=== PATIENT | female | born 1990 | race African-American/Black ===

== ENCOUNTER 2024-02-03 18:02 | Emergency (ER) | payer MEDICAID ==
[~2024-02-03] VITALS: Ht 170.2 cm; Wt 91.0 kg
[2024-02-03 18:07] VITALS: TEMP 98.2; O2SAT 100
[2024-02-03] MEDS: LIDOCAINE HCL 1% 20ML VIAL (Pyxis) INJ INFIL ONE (18:48)
[2024-02-03] MEDS: TETANUS, DIPHTHERIA, PERTUSSIS VAC/PF 0.5ML (>10YR OLD) IM ONE (19:15)
[2024-02-03 19:30] VITALS: BP 172/99; PULSE 87; RESP 18
[2024-02-03] MEDS: KETOROLAC 60MG/2ML VIAL IM ONE (19:30)
[2024-02-03] MEDS ORDERED: CEPH500C2 MT (20:43)
== END 2024-02-03 21:26 | disposition home or self-care (01) ==
LOC: ER 18:02
DX: S61.411A Laceration without foreign body of right hand, initial encounter (principal); Z98.890 Other specified postprocedural states; X58.XXXA Exposure to other specified factors, initial encounter; Y93.89 Activity, other specified; Y92.89 Other specified places as the place of occurrence of the external cause; Y99.8 Other external cause status
CPT/HCPCS: 73120; 90715; 12001; 90471; 96372; 99284; J1885; J3490; Z7610

== ENCOUNTER 2024-02-14 16:28 | Emergency (ER) | payer BC, MEDICAID ==
[~2024-02-14] VITALS: Ht 165.1 cm; Wt 78.0 kg
[~2024-02-14 16:28] MED LIST: CEPH500C2 MT
[2024-02-14 16:42] VITALS: BP 147/78; PULSE 84; RESP 18; TEMP 98.5; O2SAT 100
== END 2024-02-14 17:22 | disposition home or self-care (01) ==
LOC: ER 16:28
DX: S61.411D Laceration without foreign body of right hand, subsequent encounter (principal); Z98.890 Other specified postprocedural states; X58.XXXD Exposure to other specified factors, subsequent encounter
CPT/HCPCS: 99281

== ENCOUNTER 2024-02-17 17:09 | Emergency (ER) | payer BC ==
[~2024-02-17] VITALS: Ht 170.2 cm; Wt 81.0 kg
[2024-02-17 17:21] VITALS: TEMP 98.3; O2SAT 100
[2024-02-17] MEDS ORDERED: CEPHALEXIN 250MG CAPSULE PO ONE (19:00)
[2024-02-17] MEDS: SULFAMETHOXAZOLE/TRIMETHOPRIM 800/160MG TABLET PO ONE (20:05)
[2024-02-17] MEDS ORDERED: SULF1TAB48 MT (20:36)
[2024-02-17 21:22] VITALS: BP 138/76; PULSE 88; RESP 20
== END 2024-02-17 21:23 | disposition home or self-care (01) ==
LOC: ER 17:09
DX: S61.212D Laceration without foreign body of right middle finger without damage to nail, subsequent encounter (principal); L03.011 Cellulitis of right finger; Z98.890 Other specified postprocedural states; X58.XXXD Exposure to other specified factors, subsequent encounter
CPT/HCPCS: 81025; 99283; Z7610 ×3